=== PATIENT | male | born 1955 | race Caucasian/White ===

== ENCOUNTER 2017-03-09 06:36 | Day surgery (SDC) | payer BC ==
[2017-03-07 15:46] VITALS: BMI 29.2
[~2017-03-09 06:36] MED LIST: DEXAMETHASONE SOD PHOSPHATE 10 MG/ML 1 ML VIAL IV ONE; HYDROmorphone 1 MG/ML 1 ML SYRINGE IVP PRN; LACTATED RINGERS 1,000 ML IV SCH; ONDANSETRON 4 MG/2 ML VIAL IVP ONE; Pre Op ABX Message 1 EACH MISC MISCELLANE ONE
[2017-03-09 07:02] VITALS: TEMP 97.6
[2017-03-09] MEDS ORDERED: LIDOCAINE 1% 20 ML VIAL (10MG/ML) FOR IV START INTRADERMA ONE (07:07)
[2017-03-09] MEDS ORDERED: SUCCINYLCHOLINE CHLORIDE 100 MG/5 ML SYR IV ONE (07:43)
[2017-03-09] MEDS ORDERED: LIDOCAINE 1% INJ 10MG/ML (20 ML MDV) ONE (07:43)
[2017-03-09] MEDS ORDERED: fentaNYL (PF) 50 MCG/ML 2 ML AMP ONE (07:43)
[2017-03-09] MEDS ORDERED: PROPOFOL 10 MG/ML 20 ML VIAL IV ONE (07:43)
[2017-03-09] MEDS ORDERED: MIDAZOLAM 2 MG/2 ML VIAL ONE (07:43)
[2017-03-09] MEDS ORDERED: BUPIVACAIN-EPI 0.25%-1:200,000 30 ML VIAL SQ ONE ×2 (08:14)
--- NOTE | 2017-03-09 08:37 | P.OP ---
Date of Procedure: 03/09/17 Preoperative Diagnosis: Perianal discomfort with itching Postoperative Diagnosis: Plaque-like lesley-anal skin lesion lesion Procedure(s) Performed: Excision of skin lesion Implants: Anesthesia: RA Surgeon: Shaheen Daniels Pathology: other Condition: stable Disposition: PACU Indications for Procedure: Operative Findings: Vision had a 1.5 x 0.8 cm skin lesion excised full thickness down to the muscle on the anal verge extended laterally on the patient's left buttock did not extend onto the mucosa within the anal canal. Small internal hemorrhoid that did not require hemorrhoidectomy. Description of Procedure: This 61-year-old male who presented with perianal discharge and discomfort. On examination there was only one small indurated plaque-like white area 5 o'clock position. He also had a small hemorrhoid on anoscopy. Due to the patient's discomfort pain and examination of induration was well limited to just 1 area had recommended an excision of that lesion possible hepatectomy with examination under anesthesia. Informed consent was obtained from the patient he was taken to the operating room and given general anesthesia with endotracheal intubation. He was then flipped over into a prone jackknife position after which it and prepped and draped in the usual sterile surgical fashion. Retractor was placed in the anal canal examined. There was just one small hemorrhoid that did not was not bleeding and was very small and did not require hemorrhoidectomy. However there was just indurated skin lesion that was plaque- like extending only in one direction it was lifted up with the help of an Allis and using a sharp scalpel an elliptical incision was made around it taking a full-thickness skin excision down to the muscle. Hemostasis was carefully of electrocautery and interrupted Vicryl and Monocryl stitches. Bacitracin dressing was applied. Procedure well and no complications. 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 The area was also infiltrated with approximately 15 mL of quarter percent Marcaine with epinephrine.
[2017-03-09 09:11] VITALS: RESP 16
[2017-03-09 10:08] VITALS: PULSE 63
[2017-03-09 10:23] VITALS: BP 123/79
== END 2017-03-09 10:34 | disposition home or self-care (01) ==
LOC: OR 06:36
PROVIDERS: ATTEND Surgery
DX: L28.0 Lichen simplex chronicus (principal); L83 Acanthosis nigricans; L90.5 Scar conditions and fibrosis of skin; K64.8 Other hemorrhoids; Z88.0 Allergy status to penicillin; F17.200 Nicotine dependence, unspecified, uncomplicated
CPT/HCPCS: 11422; 88305; J2250; J1100; J2405; J2001; J3010; J0330; J2704

== ENCOUNTER 2024-10-08 05:41 | Day surgery (SDC) | payer MEDICARE ==
[2024-10-08] MEDS ORDERED: ALPRAZolam 0.25 MG TAB PO PRN (05:53)
[2024-10-08] MEDS ORDERED: NITROGLYCERIN SL TABS 0.4 MG TAB SUBLINGUAL PRN (05:53)
[2024-10-08] MEDS ORDERED: ALPRAZolam 0.5 MG TAB PO PRN (05:53)
[2024-10-08] MEDS: SODIUM CHLORIDE 0.9% 1,000 ML in EMPTY BAG 1 BAG IV SCH (05:59)
[2024-10-08] MEDS: ASPIRIN 325 MG TAB PO STA (05:59)
[2024-10-08] MEDS: IV FLUID CONTINUATION 1,000 ML IV ONE (06:01)
[2024-10-08 06:19] VITALS: RESP 16; TEMP 98.1
[2024-10-08] MEDS: HEPARIN SODIUM,PORCINE (1 ML) 2,500 UNIT in SODIUM CHLORIDE 0.9% 250 ML IRRIGATION ONE (07:27)
[2024-10-08] MEDS: HEPARIN SODIUM,PORCINE 10,000 UNIT in SODIUM CHLORIDE 0.9% 1,000 ML IRRIGATION ONE (07:27)
[2024-10-08] MEDS: fentaNYL (PF) 50 MCG/ML 2 ML AMP IVP ONE (07:36)
[2024-10-08] MEDS: LIDOCAINE 1% INJ 10MG/ML (20 ML MDV) SQ ONE (07:40)
[2024-10-08] MEDS: MIDAZOLAM 2 MG/2 ML VIAL IVP ONE (07:40)
[2024-10-08] MEDS: VERAPAMIL SYRINGE (5 MG/10 ML) INTRAARTER ONE (07:41)
[2024-10-08] MEDS: HEPARIN SODIUM 1,000 UN/ML (10ML VL) IVP ONE (07:43)
[2024-10-08] MEDS: IOPAMIDOL-370 100ML BTL INJ ONE (07:49)
[2024-10-08] MEDS ORDERED: RX INFO: IV CONTRAST WAS GIVEN 1 EACH MISC MISCELLANE PRN (08:04)
--- NOTE | 2024-10-08 08:09 | P.CARDCATH ---
Date of Procedure: 10/08/24 Description of Procedure: Cardiac Catheterization: The patient is a 69-year-old male with known history of hypertension, hyperlipidemia who has been complaining of progressive dyspnea on exertion and had an abnormal MPI. Recommendations were made regarding cardiac catheterization, the risks and the complications were discussed with the patient who is in full understanding and agreement. 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 Using Xylocaine Anesthesia and modified Seldinger technique, a 6-[place] sheath was introduced in the right radial artery . Subsequently, selective coronary angiography was performed using a 5-[place] 3.5 bend Brittney catheter. Multiple views of the coronary artery including hemiaxial views were obtained. The 5 [place] pigtail catheter was used to cross the aortic valve and LVEDP was calculated. Following that, catheter and sheath were removed. Hemostasis was obtained with deployment of vascular band . There was no immediate complication. Patient was returned to room in stable condition. Of note, the patient received a total of 5000 units of intravenous heparin as well as intra-arterial verapamil. Findings: Left main: This is a short size vessel, bifurcating into LAD and left circumflex, left main has no obstructive disease LAD: This is a large size vessel, reaching to the apex with a wraparound apex segment, giving rise to a diagonal branch proximally. The LAD in the midsegment has 10 to 20% plaque with no high-grade stenosis Left circumflex: This is a large nondominant vessel giving rise to 2 obtuse marginal branch the second 1 is large in caliber. The left circumflex has mild intimal disease in the mid and distal segment with no high-grade stenosis RCA: This is a large dominant vessel bifurcating distally to PDA and PLV the right coronary artery and its branches have mild intimal obstructive disease in the midsegment Left Ventriculogram: Not performed Hemodynamics: There was no gradient across aortic valve, LVEDP was 12-14 mmHg Conclusion: 1. Mild intimal triple vessel disease 2. Right dominance 3. Normal LVEDP Recommendations: Based on the results of the testing I see no evidence of clear cardiac etiology to explain his dyspnea on exertion, we will continue on the present medical regimen. The findings and the recommendations were discussed with the patient and the family and they were in full understanding and agreement. Duration of sedation is 15 minutes.
[2024-10-08] MEDS ORDERED: SODIUM CHLORIDE 0.9% 1,000 ML IV SCH (08:15)
[2024-10-08 17:03] VITALS: BP 127/67; PULSE 69
[2024-10-08] MEDS ORDERED: ATORVASTATIN 40 MG TAB PO SCH (21:00)
[2024-10-09] MEDS ORDERED: METOPROLOL SUCCINATE (ER) 25 MG TAB.ER.24H PO SCH (09:00)
[2024-10-09] MEDS ORDERED: LOSARTAN-HCTZ 50-12.5 MG 1 EACH TAB PO SCH (09:00)
[2024-10-09] MEDS ORDERED: ASPIRIN 81 MG PO SCH (09:00)
== END 2024-10-08 12:17 | disposition home or self-care (01) ==
LOC: CATHCVL 05:41
PROVIDERS: ATTEND Internal Medicine Interventional Cardiology
DX: R94.39 Abnormal result of other cardiovascular function study (principal); I10 Essential (primary) hypertension; E78.2 Mixed hyperlipidemia; F10.90 Alcohol use, unspecified, uncomplicated; Z79.899 Other long term (current) drug therapy; Z87.891 Personal history of nicotine dependence
CPT/HCPCS: 93458; C1769 ×2; C1894; J2250; J1644 ×3; J2003; J3010; Q9967